=== PATIENT | male | born 1970 | race Caucasian/White ===

== ENCOUNTER 2016-11-30 12:14 | Emergency (ER) | payer SELFPAY ==
[~2016-11-30] VITALS: Ht 177.8 cm; Wt 111.0 kg
[~2016-11-30 12:14] MED LIST: ATORVASTATIN CA10 M1 PO; BACTRIM DS TABL1 TAB PO; COMBIVENT RESPIM4 G1 INH; IBUPROFEN800 M1 PO; LOPRESSOR25 MG/TA1 GT; LOPRESSOR25 MG/TA1 PO; MOBIC15 M2 PO; NORCO 5/325 TAB1 TAB PO; PREDNISONE10 M1 PO; PRISTIQ50 MG PO; THERAFLU COLD1 EAC1 PO; TYLENOL EXTRA500 M1 PO; VITAMIN D1000 UNI2 PO; VITAMIN D50000 UNI2 PO; [UNRECOGNIZED DRUG - OTHER]; [UNRECOGNIZED DRUG - SUPPLY] MC
[2016-11-30 12:28] LABS: URINE BILIRUBIN NEGATIVE (NEG); URINE BLOOD SMALL (NEG); URINE GLUCOSE (UA) NEGATIVE (NEG); URINE KETONE NEGATIVE (NEG); URINE LEUKOCYTE ESTERASE NEGATIVE (NEG); URINE NITRITE NEGATIVE (NEG); URINE PROTEIN NEGATIVE (NEG)
[2016-11-30 12:30] LABS: URINE APPEARANCE CLEAR; URINE COLOR YELLOW
[2016-11-30 12:34] LABS: URINE EPITHELIAL CELLS 0 /[HPF] (0-10); URINE MUCUS 2+; URINE RBC RARE /[HPF] (0-5); URINE WBC RARE /[HPF] (0-5)
[2016-11-30 13:19] LABS: CREATININE 0.75 mg/dl (0.60-1.30); eGFR VALUE FOR BLACK >90 mL/Min
[2016-11-30] MEDS ORDERED: NEURONTIN300 M1 PO (13:19)
[2016-11-30] MEDS ORDERED: TRICOR145 M2 PO (13:20)
[2016-11-30 14:15] LABS: BASO % 1.1 % (0-2); BASO ABSOLUTE COUNT 0.1 tho/cmm (0.0-0.2); EOS % 4.1 % (0-7); EOSINOPHIL ABSOLUTE COUNT 0.3 tho/cmm (0.0-0.7); HCT-HEMATOCRIT 44.1 % (36.0-53.5); HGB-HEMOGLOBIN 14.9 gm/dl (13.5-17.0); IMMATURE GRANULOCYTES ABSOLUTE 0.09 tho/cmm (0-0.03); IMMATURE GRANULOCYTES PERCENT 1.1 % (0-0.3); LYMPH % 31.4 % (20-45); LYMPH ABSOLUTE COUNT 2.6 tho/cmm (0.8-4.5); MCH (MEAN CORPUSCULAR HGB) 30.2 pg (28.0-32.0); MCHC MEAN CORPUSCULAR HGB CONC 33.8 % (32.0-36.0); MCV (MEAN CELL VOLUME) 89.3 fl (82.0-96.0); MEAN PLATELET VOLUME 9.1 cmc (9.4-12.4); MONO % 7.9 % (0-12); MONOCYTE ABSOLUTE COUNT 0.6 tho/cmm (0.0-1.2); NEUTROPHIL ABSOLUTE COUNT 4.4 tho/cmm (1.6-8.0); NEUTROPHIL-AUTOMATED 4.4 tho/cmm (1.6-8.0); NEUTROPHILS % 54.4 % (40-80); PLATELET COUNT 280 tho/cmm (150-450); RED BLOOD COUNT 4.94 mil/cmm (4.40-5.70); RED CELL DISTRIBUTION WIDTH 12.7 % (12.4-16.4); WHITE BLOOD COUNT 8.1 tho/cmm (4.0-10.0)
[2016-11-30] MEDS ORDERED: TYLENOL EXTRA500 M1 PO (14:15)
[2016-11-30] MEDS ORDERED: NORCO 5-325 TA1 EACH PO (14:52)
== END 2016-11-30 15:16 ==
LOC: EDMED 12:14
PROVIDERS: Emergency Medicine
PROC: BW21ZZZ Computerized Tomography (CT Scan) of Abdomen and Pelvis (ICD-10-PCS; principal; 2016-11-30)
DX: N20.0 Calculus of kidney (principal); E78.1 Pure hyperglyceridemia; G43.909 Migraine, unspecified, not intractable, without status migrainosus; F17.200 Nicotine dependence, unspecified, uncomplicated; Z79.899 Other long term (current) drug therapy
CPT/HCPCS: J1885; J2270; J2405; J7030